=== PATIENT | female | born 1965 | race Caucasian/White ===

== ENCOUNTER → 2023-12-03 12:00 | Outpatient (REF) | payer BC, SELFPAY ==
[2023-12-03 13:43] LABS: % Basophils 0.6 % (0-2); % Eosinophils 1.2 % (0-6); % Immature Granulocytes 0.4 % (0-0.5); % Lymphocytes 36.3 % (20.5-51.1); % Monocytes 8.3 % (1.7-9.3); % Neutrophils 53.2 % (42.2-75.2); Absolute Eosinophils 0.1 10^3/uL (0-0.7); Absolute Lymphocytes 1.9 10^3/uL (1.2-3.4); Absolute Monocytes 0.4 10^3/uL (0.1-0.6); Absolute Neutrophils 2.8 10^3/uL (1.4-6.5); Hematocrit 36.2 % (37.0-47.0); Hemoglobin 12.7 g/dL (12.0-16.0); Mean Corp Hgb Conc. 35.1 g/dL (33.0-37.0); Mean Corpuscular Hgb 31.9 pg (27.0-31.0); Nucleated Red Blood Cells % 0 %; Platelet Count 270 10^3/uL (130-400); Red Blood Cell Count 3.98 10^6/uL (4.20-5.40); Red Cell Dist. Width 11.6 % (11.5-14.5); White Blood Cell Count 5.2 10^3/uL (4.8-10.8)
[2023-12-03 14:04] LABS: ALT (SGPT) 27 U/L (0-35); AST (SGOT) 30 U/L (14-36); Albumin 4.8 g/dl (3.5-5.0); Alkaline Phosphatase 80 U/L (38-126); Blood Urea Nitrogen 11 mg/dl (7-17); Calcium 9.9 mg/dl (8.4-10.2); Carbon Dioxide 26 mmol/L (22-30); Chloride 103 mmol/L (98-107); Glucose 91 mg/dl (70-99); HDL Cholesterol 71 mg/dl; LDL Cholesterol, Calculated 109 mg/dl; Potassium 4.3 mmol/L (3.5-5.1); Sodium 139 mmol/L (135-145); Total Cholesterol 194 mg/dl (50-199); Total Protein 7.3 g/dl (6.3-8.2); Triglyceride 74 mg/dl (10-149); Very Low Density Lipoprotein 14 mg/dl (0-30); eGFR > 60.00
[2023-12-03 14:28] LABS: TSH Reflex To Free T4 1.43 uIU/ml (0.47-4.68)
== END ==
LOC: REG 12:00
PROVIDERS: ATTENDING PHYSICIAN Nurse Practitioner Family; REFERRING PHYSICIAN Internal Medicine
DX: Z00.00 Encounter for general adult medical examination without abnormal findings (principal)
CPT/HCPCS: 36415; 80053; 80061; 84443; 85025; 87045; 87046; 87324; 87328; 87329; 87427; 87449

== ENCOUNTER → 2023-12-04 10:16 | Outpatient (REF) | payer BC, SELFPAY | LOC: HWRAD 10:16 | PROVIDERS: ATTENDING PHYSICIAN Internal Medicine | DX: K58.9 Irritable bowel syndrome, unspecified (principal) | CPT/HCPCS: 76700 ==

== ENCOUNTER → 2024-01-22 10:20 | Outpatient (REF) | payer BC, SELFPAY | LOC: RAD 10:20 | PROVIDERS: ATTENDING PHYSICIAN Nurse Practitioner Adult Health | DX: R05.3 Chronic cough (principal) | CPT/HCPCS: 71046 ==

== ENCOUNTER 2024-02-27 06:11 | Emergency (ER) | payer BC, SELFPAY ==
[2024-02-27 06:11] VITALS: BMI 22.4
[2024-02-27 06:14] VITALS: BP 101/64
[2024-02-27 06:30] VITALS: BP 101/68
--- NOTE | 2024-02-27 06:46 | ED.GENMED ---
History of Present Illness
General
Chief Complaint: Skin Surface Trauma
Source: patient
Exam Limitations: none
Time Seen by Provider: 02/27/24 06:36
Nursing documentation reviewed up to this point in time: agreed with
History of Present Illness
History of Present Illness:
58-year-old female presents Emergency Department complaining of hitting shower door forehead. She is unclear if she lost consciousness. Her head hurts, but otherwise she feels okay.
Past History
Past History
ED Past Medical History: None and Other (Migraine headaches, hypothyroidism)
ED Past Surgical History: Other (Hemorrhoidectomy, breast reductions and implants)
Social History
Tobacco: Non-smoker
Alcohol: Occasional
Personal:
Living: alone
Employment: Not employed
Family History
Family History: CAD
Review of Systems
Review of Systems
Allergies reviewed?: Yes
All Other Systems: Not applicable
Constitutional: Reports no symptoms
EENT: Reports no symptoms
Respiratory: Reports no symptoms
Cardiac: Reports no symptoms
ABD/GI: Reports no symptoms
: Reports no symptoms
Musculoskeletal: Reports no symptoms
Skin: Reports other (Forehead laceration)
Neurological: Reports headache
Endocrine: Reports no symptoms
Hematologic/Lymphatic: Reports no symptoms
Psychiatric: Reports no symptoms
Phy Exam
Physical Exam
Physical Exam:
Physical Exam
General: no apparent distress, not acutely ill
Neck: supple. no meningeal signs. normal posterior pharynx
Heart: equal radial pulses.
HEENT: Pupils equal round reactive to light, EOMI
Lungs: no acute respiratory distress.
Abdomen: normal bowel sounds. not tender. no CVAT
Neuro: alert and oriented. no focal neurological deficits cranial nerves II through XII intact
Skin: no rash, superficial 2 cm forehead laceration
Psychiatric: well kept. interactive and cooperative
Extremities: no edema. no calf tenderness. negative homans. good distal pulses
Course
Orders/Labs/Results
Orders:
Orders
02/27/24 06:45
CT Head W/o Iv Contrast Urgent
Comment:
Reason For Exam: hit head on shower door, unclear LOC
02/27/24 06:46
Tetanus/Diphth/Acelpertussis [Adacel] 0.5 ml IM .ONCE ONE
Vital Signs
Initial and Last Documented VS:
Initial Vital Signs
Temp Pulse Resp BP Pulse Ox
98.6 F 73 15 101/64 97
02/27/24 06:14 02/27/24 06:14 02/27/24 06:14 02/27/24 06:14 02/27/24 06:14
Last Documented Vital Signs
Temp Pulse Resp BP Pulse Ox
98.6 F 68 16 103/74 97
02/27/24 06:14 02/27/24 07:05 02/27/24 07:05 02/27/24 07:05 02/27/24 07:05
Procedures
Laceration Closure
Head:
Status of Wound: clean
Size of Wound in cm: 2
Description of Wound Edges: sharp (Superficial)
Preparation: cleaned with saline
Revision/Debridement: routine- no revision
Wound exploration: explored to base- no FB
Type of Closure: single layer closure and other (Steri-Strips)
Skin Closure Material: other (Steri-Strips)
MDM/Problems Addressed
Differential Diagnosis Includes:
Intracranial hemorrhage, concussion
MDM/Problems Addressed:
58-year-old female with superficial forehead laceration and hematoma. No intracranial hemorrhage. No skull fracture. Stable for discharge.
*Radiology
Radiology exam reviewed: radiology read reviewed (CT head no acute finding)
*Pulse Oximetry
Patient hypoxic: no
*Critical Care Note
Total Time (30-74mins, 75-104mins- exclusive of procedures): Not Applicable
ED Attending Note
-
Portions of this chart may have been created with voice recognition software.� Occasional wrong word or��sound alike� substitutions may have occurred due to the inherent limitations of voice recognition software.
Discharge Plan
Departure
Patient Disposition: Home (Routine Discharge)
Date of Disposition: 02/27/24
Time of Disposition: 08:07
Patient with high blood pressure during this ER visit?: No
Condition: Good
Discharge Problem:
Forehead laceration
Instructions: Wound Care (DC), Head injury in adults
Prescriptions:
No Action
amphetamine sulfate [Evekeo] 10 MG tablet
10 mg PO PRN PRN (Reason: ADD)
acetaminophen 325 MG tablet
650 mg PO Q4HPRN PRN (Reason: mild pain/RIDLEY/temp> 100.4F) 0RF
citalopram [Celexa] 40 mg Tablet
20 mg PO DAILY
levothyroxine 125 mcg Tablet
125 mcg PO DAILY
Referrals:
Ivy Diaz MD [Family Provider] - Call in 1-3 days for appt
Interventions
Interventions:
*Risk Screen - Suicide Last Done: 02/27/24 06:14
*General Assessment Last Done: 02/27/24 06:14
*Neglect/Abuse Screening Last Done: 02/27/24 06:14
ED- Fall Risk Assessment Last Done: 02/27/24 06:14
*ED COVID-19 Vaccine History Last Done: 02/27/24 06:14
ED-Skin Assessment Last Done: 02/27/24 06:26
Discharge Date and Time
Print Language: GEORGIAN
[2024-02-27] MEDS: ADACEL 0.5 ML IM (06:58)
[2024-02-27 07:05] VITALS: BP 103/74
== END 2024-02-27 08:37 | disposition home or self-care (01) ==
LOC: EMR 06:11
PROVIDERS: EMERGENCY PHYSICIAN Emergency Medicine; FAMILY PHYSICIAN Internal Medicine
DX: S01.81XA Laceration without foreign body of other part of head, initial encounter (principal); R51.9 Headache, unspecified; W22.09XA Striking against other stationary object, initial encounter; Z23 Encounter for immunization; E03.9 Hypothyroidism, unspecified; F41.9 Anxiety disorder, unspecified; F32.A Depression, unspecified
CPT/HCPCS: 99284; 90471; 70450; 90715

== ENCOUNTER → 2024-03-09 11:38 | Outpatient (REF) | payer BC, SELFPAY ==
[2024-03-09 12:39] LABS: % Basophils 0.6 % (0-2); % Eosinophils 1.7 % (0-6); % Monocytes 9.3 % (1.7-9.3); % Neutrophils 41.4 % (42.2-75.2); Absolute Eosinophils 0.1 10^3/uL (0-0.7); Absolute Lymphocytes 2.2 10^3/uL (1.2-3.4); Absolute Monocytes 0.4 10^3/uL (0.1-0.6); Hematocrit 35.5 % (37.0-47.0); Hemoglobin 12.3 g/dL (12.0-16.0); Mean Corp Hgb Conc. 34.6 g/dL (33.0-37.0); Mean Corpuscular Hgb 31.9 pg (27.0-31.0); Mean Corpuscular Volume 92.2 fL (81.0-99.0); Nucleated Red Blood Cells % 0 %; Platelet Count 250 10^3/uL (130-400); Red Blood Cell Count 3.85 10^6/uL (4.20-5.40); Red Cell Dist. Width 11.6 % (11.5-14.5); White Blood Cell Count 4.7 10^3/uL (4.8-10.8)
[2024-03-09 23:16] LABS: IgA 223 mg/dl (70-400); IgG 826 mg/dl (700-1600); IgM 76 mg/dl (40-230)
[2024-03-12 08:22] LABS: Alternaria tenuis <0.10 kU/L (<=0.34); Aspergillus fumigatus <0.10 kU/L (<=0.34); Bermuda Grass 1.36 kU/L (<=0.34); Birch Tree <0.10 kU/L (<=0.34); Box Elder/Maple Tree <0.10 kU/L (<=0.34); Cat Epithelium/Dander <0.10 kU/L (<=0.34); Common Pigweed <0.10 kU/L (<=0.34); Cottonwood Tree <0.10 kU/L (<=0.34); Dermatophagoides farinae <0.10 kU/L (<=0.34); Dermatophagoides pteronyssinus <0.10 kU/L (<=0.34); Dog Dander <0.10 kU/L (<=0.34); Elm Tree <0.10 kU/L (<=0.34); German Cockroach <0.10 kU/L (<=0.34); Hormodendrum <0.10 kU/L (<=0.34); IgE 30 kU/L (<=214); Mountain Cedar Tree 0.36 kU/L (<=0.34); Mouse Epithelium 0.13 kU/L (<=0.34); Mucor racemosus <0.10 kU/L (<=0.34); Mugwort Weed 0.26 kU/L (<=0.34); Oak Tree <0.10 kU/L (<=0.34); Penicillium notatum <0.10 kU/L (<=0.34); Sheep Sorrel Weed <0.10 kU/L (<=0.34); Sycamore Tree <0.10 kU/L (<=0.34); Timothy Grass 3.24 kU/L (<=0.34); Walnut Tree <0.10 kU/L (<=0.34); White Ash Tree 0.27 kU/L (<=0.34); White Mulberry Tree <0.10 kU/L (<=0.34)
== END ==
LOC: REG 11:38
PROVIDERS: Internal Medicine; ATTENDING PHYSICIAN Physician Assistant
DX: J30.9 Allergic rhinitis, unspecified (principal)
CPT/HCPCS: 36415; 82784; 82785; 85025; 86003

== ENCOUNTER → 2024-07-08 10:50 | Outpatient (REF) | payer BC, SELFPAY | LOC: WDC 10:50 | PROVIDERS: ATTENDING PHYSICIAN Internal Medicine | DX: Z12.31 Encounter for screening mammogram for malignant neoplasm of breast (principal) | CPT/HCPCS: 77063; 77067 ==